=== PATIENT | female | born 1935 | race Caucasian/White ===

== ENCOUNTER 2017-01-14 11:47 | Day surgery (SDC) | payer OTHER ==
[2017-01-13 10:37] VITALS: BMI 27.4
[2017-01-14] MEDS ORDERED: LIDOCAINE HCL 2% (20ML MULTI-DOSE VIAL) NR ONE (12:48)
[2017-01-14] MEDS ORDERED: BUPIVACAINE HCL/PF 0.5% (5MG/ML) 10 ML VIAL ONE (12:48)
[2017-01-14] MEDS ORDERED: MIDAZOLAM HCL 2 MG/2 ML SINGLE DOSE VIAL ONE (13:01)
[2017-01-14] MEDS ORDERED: ceFAZolin SODIUM 1 GM VIAL IVPB ONE (13:25)
[2017-01-14] MEDS ORDERED: ACETAMINOPHEN 325 MG TABLET (FP) PO PRN (15:08)
[2017-01-14] MEDS ORDERED: ONDANSETRON 4 MG/2 ML VIAL IVPUSH PRN (15:08)
[2017-01-14] MEDS ORDERED: LACTATED RINGERS SOLUTION 1,000 ML IV SCH (15:15)
[2017-01-14 17:36] VITALS: TEMP 97.7
[2017-01-14] MEDS ORDERED: ACETAMINOPHEN 325 MG TABLET (FP) ONE (18:05)
[2017-01-14 19:29] VITALS: BP 147/57; PULSE 68
--- NOTE | 2017-01-15 08:34 | OP ---
DATE OF OPERATION: 01/14/2017 SURGEON: Pito Velazco DPM WARP DRESSER: Darrian Paul PREOPERATIVE DIAGNOSES: 1. Bunion, hammertoes, 2, 3, 4, and 5, right foot. 2. Metatarsal bursitis, 2, 3, 4, and 5, right foot. 3. Tailor's bunion, right foot. PROCEDURES: 1. Timur [place] bunionectomy using 3.0 screw and staple. 2. Hammertoes 2, 3, 4, and 5 correction using arthroplasty. 3. Metatarsophalangeal joints release, 2, 3, 4, and 5. 4. Metatarsal osteotomy, number 3 with a 2.4 screw. 5. Osteotomy of 5th metatarsal using a K-wire 0.062. DESCRIPTION OF PROCEDURE: Patient was prepped and draped in the usual sterile manner under satisfactory local anesthesia with IV sedation. Attention was directed to the 1st metatarsophalangeal joint where a linear incision was performed. It was carried down to the level of the joint capsule, carefully preserving all neurovascular structures, clamping and ligating all bleeders where necessary. A linear capsulorrhaphy was performed. The capsular ligaments and structures attached to the head of the 1st metatarsal were dissected free, exposing the hypertrophic dorsal medial eminence into the wound, which was resected with a sagittal saw. Following this, a V-shaped osteotomy was made from medial to lateral with a long dorsal arm. It was fixated with stability after translocating the capital fragment into the appropriate position and held with a 3.0 screw. Following this, an Rick osteotomy was performed in the proximal phalanx. This was done, taking a V-shape wedge out of the proximal phalanx using a sagittal saw and preserving the hinge. This was fixated with a 10-mm staple. Following all fixation, x-rays were taken and confirmed stability and correct positioning of all procedures. Following this, our attention was directed to the 2nd toe where a linear incision was performed from the PIPJ all the way down to the MPJ and slightly proximal. It was carried down to the level of capsule and also to the PIP joint, carefully preserving neurovascular structures, clamping and ligating or Bovie'ing bleeders where necessary. A transverse incision was made through the tendon into the joint, and the capital fragment was placed into the wound and resected with a double-action bone cutting forceps. The cut was smooth with no spiculization or fragmentation and was rasped smooth. Following this, a release was performed at the metatarsophalangeal joint using a transverse procedure across the tendon and entering the joint and performing a dorsal medial and lateral capsulotomy. A McGlamry elevator was used to free up the metatarsal head. Following this procedure in the 2nd metatarsal, it was noted to sit in a more corrected position. The same exact procedure was then performed on the 3rd, 4th, and 5th metatarsal, the only differences being that on the 3rd metatarsal, an osteotomy was performed in addition. This was a [place] osteotomy. So, after using the McGlamry elevator, a sagittal saw was used to perform the [place] osteotomy and was fixated with stability after positioning and noting the position on x-ray to be corrected with a single 2.4 lag screw. In addition, the [place] osteotomy was also performed on the 5th metatarsal. That was held in place with a single 0.062 K-wire which was placed through the digit and also into the metatarsal. Following all procedures and deflation of the tourniquet, a normal hyperemic did return to all digits of the operative foot. Patient tolerated the procedure well. There were no complications noted. CAROLINE AMAYA/[id number]
--- NOTE | 2017-01-19 13:59 | PATH ---
Surgical Pathology Report Patient Name: GAVIOTA CARLOS [facility]. Rec. #: [id number] /Age/Gender: 1935 (Age: 81) / F Account: [id number] Location: [facility] SURGICAL Taken: 01/14/2017 Received: 01/17/2017 Reported: 01/19/2017 Physicians: Pito Velazco M.D. Specimen(s) Received BONE AND TISSUE RIGHT FOOT Clinical History Bunion Final Diagnosis BONE AND SOFT TISSUE, RIGHT FOOT, EXCISION: BONE WITH REACTIVE CHANGES CONSISTENT WITH BUNION, WITH ATTACHED CARTILAGE AND SYNOVIUM. Electronically Signed Pernell Frances M.D. Gross Description Received in formalin labeled "bone and tissue right foot," is a 2.8 x 2.8 x 0.6 cm aggregate of garcia-yellow bone fragments and minimal soft tissue. Claims Collector sections are submitted in one cassette, following decalcification. /01/18/201701/18/2017
== END 2017-01-14 18:35 | disposition home or self-care (01) ==
LOC: JASU-SURG 11:47
PROVIDERS: ATTEND Podiatrist Foot Surgery
PROC: 0QSN0ZZ Reposition Right Metatarsal, Open Approach (ICD-10-PCS; 2017-01-14)
PROC: 0QN Lower Bones, Release (ICD-10-PCS; 2017-01-14)
PROC: 0QSN0ZZ Reposition Right Metatarsal, Open Approach (ICD-10-PCS; principal; 2017-01-14 13:00)
PROC: 0SRP0JZ Replacement of Right Toe Phalangeal Joint with Synthetic Substitute, Open Approach (ICD-10-PCS; 2017-01-14 13:00)
PROC: 0QBN0ZZ Excision of Right Metatarsal, Open Approach (ICD-10-PCS; 2017-01-14 13:00)
DX: M20.21 Hallux rigidus, right foot (principal); M20.41 Other hammer toe(s) (acquired), right foot; M25.774 Osteophyte, right foot; M21.6X9 Other acquired deformities of unspecified foot
CPT/HCPCS: 88304-TC; 88311-TC; 94760

== ENCOUNTER 2018-02-24 11:09 | Day surgery (SDC) | payer OTHER ==
[2018-02-20 09:53] VITALS: BMI 27.6
[2018-02-24] MEDS ORDERED: BUPIVACAINE HCL/PF 0.5% (5MG/ML) 10 ML VIAL ONE (13:32)
[2018-02-24] MEDS ORDERED: MIDAZOLAM HCL 2 MG/2 ML SINGLE DOSE VIAL ONE (13:44)
[2018-02-24] MEDS ORDERED: PROPOFOL 20 ML ONE (13:44)
[2018-02-24] MEDS ORDERED: DEXAMETHASONE SOD PHOSPHATE 4 MG/1 ML VIAL ONE (14:13)
[2018-02-24] MEDS ORDERED: ONDANSETRON 4 MG/2 ML VIAL ONE (14:13)
[2018-02-24] MEDS ORDERED: ceFAZolin SODIUM 1 GM VIAL ONE (14:13)
[2018-02-24] MEDS ORDERED: KETOROLAC TROMETHAMINE 30 MG/1 ML VIAL ONE (14:13)
[2018-02-24] MEDS ORDERED: BUPIVACAINE HCL/PF (5 MG/ML) 30 ML VIAL IJ ONE (14:22)
[2018-02-24] MEDS ORDERED: LIDOCAINE HCL 1%, 10 MG/ML (20ML VIAL) INF ONE (14:22)
[2018-02-24] MEDS ORDERED: ePHEDrine SULFATE 50 MG/1 ML AMPULE ONE (14:27)
[2018-02-24] MEDS ORDERED: ONDANSETRON 4 MG/2 ML VIAL IVPUSH PRN (14:52)
[2018-02-24] MEDS ORDERED: LACTATED RINGERS SOLUTION 1,000 ML IV SCH (15:00)
[2018-02-24 17:30] VITALS: PULSE 75
[2018-02-24 18:17] VITALS: BP 131/62; TEMP 98
--- NOTE | 2018-02-27 14:22 | OP ---
DATE OF OPERATION: 02/24/2018 SURGEON: Janet Velazco MD REVERSING MILL ROLLER: Marion Brito PGY-3 PREOPERATIVE DIAGNOSIS: 1. Right foot bunion, hallux valgus. 2. Dislocated 4th digit at the metatarsophalangeal joint. 3. Rotated right foot 5th digit. 4. Left foot 5th hammertoe. POSTOPERATIVE DIAGNOSIS: 1. Right foot bunion, hallux valgus. 2. Dislocated 4th digit at the metatarsophalangeal joint. 3. Rotated right foot 5th digit. 4. Left foot 5th hammertoe. PROCEDURES: 1. Right hallux Rom[place] bunionectomy,. 2. 4th metatarsal head arthroplasty with an implant. 3. 5th toe, right foot, syndactyly and skin plasty. . 4. Left foot 5th toe arthroplasty and extensor tenotomy and a capsulotomy. ANESTHESIA: Local with MAC, LMA. PATHOLOGY: Bone and soft tissue. ESTIMATED BLOOD LOSS: 10 mL. HEMOSTASIS: Right ankle tourniquet at 250 mmHg and electrocautery. MATERIALS USED: A 10-mm EnCompass deann-implant for the head of the 4th metatarsal, right foot, 2-0 3-0 Vicryl sutures used, 3-0 and 4-0 nylon sutures used, postoperative dressings such as Xeroform, dry sterile dressing, and coban used. INJECTABLES: 30 mL of a 1-to-1 mixture of 1% lidocaine plane and 0.5% Marcaine used preoperatively and 10 mL of 0.5% Marcaine plain used postoperatively. CONDITION OF THE PATIENT: Stable. COMPLICATIONS: None. DESCRIPTION OF PROCEDURE: The patient was brought to the operating room and placed on the operating table in the supine position. A pneumatic ankle tourniquet was then placed on patients right ankle. Following IV sedation, local anesthesia was obtained using a 1-to-1 mixture of 1% lidocaine plain and 0.5% Marcaine plain. Preoperatively, 30 mL total was injected to the surgical site right foot as well as the left 5th digit. Both feet were then scrubbed, prepped, and draped in the usual aseptic manner. An Esmarch bandage was then utilized to exsanguinate the patients right foot, and the tourniquet was inflated. Attention was first directed to the dorsal aspect of the 4th metatarsal of the right foot where a linear incision was made medial and parallel to the tendon of extensor hallucis longus. The incision was then deepened through the subcutaneous tissue using sharp and blunt dissection. Using McGlamry elevator, the head of the 4th metatarsal was then decompressed, and a K-wire was inserted into the middle of the head. At this time, fluoroscopy was used towards the position of the K-wire. Next, using a reamer, the head of the 4th metatarsal was reamed and using the trial implant, which was confirmed under fluoroscopy and good positioning was noted, the wound was then irrigated with copious amounts of normal saline, and a 10-mm EnCompass implant was inserted into the head of the 4th metatarsal. The first K-wire was removed from the operative field. At this time, fluoroscopy was used, and great position of the implant was noted. The capsular and subcutaneous tissue was closed using 3-0 and 4-0 Vicryl sutures and skin was closed using 3-0 nylon sutrure. Next, attention was brought to the 4th interspace, right foot, where the soft tissue lesion was noted in the interspace on the medial aspect of the 5th toe starting from the interspace. At this time, using No. 15 blade, the soft tissue callus lesion was removed from the operative field and skin plasty was done in order to syndactylize the 4th and 5th digits together and the distal edges were aligned and and sutured using 3-0 nylon suture plantarly and on dorsal aspect, skin plasty was done in order to remove the proximally for perfect skin alignment , and the skin was closed using 3-0 and 4-0 nylon suture. Next, attention was brought to the dorsal aspect of the 1st metatarsal head of the right foot where a linear incision was made medial and parallel to the tendon of extensor hallucis longus. The incision was then deepened through the subcutaneous tissue using sharp and blunt dissection. Care was taken to identify all vital neurovascular structures. All bleeders were then ligated and cauterized as necessary. At this time, a linear capsulotomy was then performed over the dorsal aspect of the 1st metatarsophalangeal joint. The periosteal and capsular structures were then carefully dissected medially and laterally exposing the head of the 1st metatarsal. Attention was then directed to medial aspect of the 1st metatarsal head. Using a sagittal saw, the medial prominence was then resected and passed off the operative field. At this time, all the sharp edges were smoothened using the rongeur and the wound was irrigated with copious amount of normal saline. At this time, fluoroscopy was used to confirm the medial eminence was gone and the capsular and subcutaneous tissues were closed using 2-0 and 3-0 Vicryl sutures, and the skin was closed using 3-0 nylon suture. Postoperative injection including 10 mL of 0.5% Marcaine was introduced throughout the surgical sites, right foot, and postoperative dressing such as Xeroform and dry sterile dressing, ABD pad, Inessa, and Coban applied to the right foot. At this time, the right ankle tourniquet was deflated, and immediate hyperemia was noted to all digits of the right foot. Next, attention was brought to the left foot, 5th toe. Using No. 15 blade, a linear incision was made over the dorsal aspect of the proximal interphalangeal joint, and extensor tendon was tenotomized with a transverse cut, and the head of the proximal phalanx was resected using sagittal saw and passed from the operative field. At this time, the position of the 5th digit of the left foot was assessed and appeared to be positioned slightly dorsally. So, the extensor tendon was tenotomized at the level of the dorsal phalangeal joint, and the position appeared to be, the hammertoe appeared to be reduced and in perfect alignment with the other toes. At this time, the wound was irrigated with copious amount of normal saline, and skin was closed using the 3-0 nylon suture. Postoperative dressing such as Xeroform, dry sterile dressing, Inessa, and Coban applied to the left foot. Patient tolerated the procedures and anesthesia well and was transferred to the post-anesthesia care unit with vital signs stable and vascular status intact to bilateral lower extremities. Following postoperative monitoring, the patient will be discharged home and was already given the instructions and prescriptions, which was discussed prior to the surgery. JANET VELAZCO M.D. [id number]
== END 2018-02-24 18:21 | disposition home or self-care (01) ==
LOC: FASU 11:09
PROVIDERS: ATTEND Podiatrist Foot Surgery
PROC: 0SRP0JZ Replacement of Right Toe Phalangeal Joint with Synthetic Substitute, Open Approach (ICD-10-PCS; 2018-02-24)
PROC: 0QBQ0ZZ Excision of Right Toe Phalanx, Open Approach (ICD-10-PCS; principal; 2018-02-24 12:30)
PROC: 0H8MXZZ Division of Right Foot Skin, External Approach (ICD-10-PCS; 2018-02-24 12:30)
PROC: 0SSM04Z Reposition Right Metatarsal-Phalangeal Joint with Internal Fixation Device, Open Approach (ICD-10-PCS; 2018-02-24 12:30)
DX: M21.6X1 Other acquired deformities of right foot (principal); M20.11 Hallux valgus (acquired), right foot; M21.611 Bunion of right foot; M20.41 Other hammer toe(s) (acquired), right foot; X58.XXXA Exposure to other specified factors, initial encounter; Y93.9 Activity, unspecified; Y92.9 Unspecified place or not applicable
CPT/HCPCS: 73630-TC-LT; 73630-TC-RT-FY; 94760